=== PATIENT | female | born 1990 | race Caucasian/White ===

== ENCOUNTER 2020-10-31 00:21 | Emergency (ER) | payer MEDICAID ==
[~2020-10-31] VITALS: Ht 162.6 cm; Wt 90.7 kg
[2020-10-31 00:30] VITALS: BP_SYST 108
[2020-10-31] MEDS ORDERED: NACL 0.9% 1,000 ML IV ONE ×2 (02:30→02:45)
[2020-10-31] MEDS ORDERED: ONDANSETRON HCL 4 MG/2 ML VIAL IVP ONE (02:30)
[2020-10-31 02:31] LABS: BILIRUBIN,URINE NEGATIVE (NEGATIVE); BLOOD, URINE NEGATIVE (NEGATIVE); CLARITY/URINE CLEAR (CLEAR); COLOR,URINE YELLOW (YELLOW); GLUCOSE,URINE NEGATIVE (NEGATIVE); KETONES,URINE NEGATIVE (NEGATIVE); LEUKOCYTE ESTERASE ,URINE NEGATIVE (NEGATIVE); NITRITE, URINE NEGATIVE (NEGATIVE); PH,URINE 5.5 (5.0-8.0); PROTEIN URINE NEGATIVE (NEGATIVE); UROBILINOGEN,URINE 0.2 (0.2-1.0)
[2020-10-31] MEDS ORDERED: ONDA-8 TL (04:22)
[2020-10-31 04:30] VITALS: BP_SYST 108
== END 2020-10-31 04:30 | disposition home or self-care (01) ==
LOC: SED 00:21
DX: O21.0 Mild hyperemesis gravidarum (principal); Z3A.08 8 weeks gestation of pregnancy
CPT/HCPCS: 76801; 76817; 81003; 81025; 96361; 96374; 99284; J2405; J7030

== ENCOUNTER 2020-11-17 22:44 | Emergency (ER) | payer MEDICAID ==
[~2020-11-17] VITALS: Ht 162.6 cm; Wt 90.7 kg
[~2020-11-17 22:44] MED LIST: ONDA-8 TL
[2020-11-17 22:53] VITALS: BP_SYST 148
[2020-11-17] MEDS ORDERED: NACL 0.9% 1,000 ML IV ONE (23:15)
[2020-11-17 23:54] LABS: BILIRUBIN,URINE NEGATIVE (NEGATIVE); BLOOD, URINE NEGATIVE (NEGATIVE); CLARITY/URINE CLEAR (CLEAR); COLOR,URINE YELLOW (YELLOW); GLUCOSE,URINE NEGATIVE (NEGATIVE); KETONES,URINE NEGATIVE (NEGATIVE); LEUKOCYTE ESTERASE ,URINE TRACE (NEGATIVE); NITRITE, URINE NEGATIVE (NEGATIVE); PROTEIN URINE NEGATIVE (NEGATIVE); UROBILINOGEN,URINE 0.2 (0.2-1.0)
[2020-11-18 00:04] LABS: ACETONE, SERUM NEGATIVE (NEGATIVE)
[2020-11-18 00:06] LABS: ANION GAP 12 (5-15); CALCIUM 8.8 mg/dL (8.4-11.0); CHLORIDE 102 mmol/L (98-107); CREATININE 0.76 mg/dL (0.55-1.30); GLUCOSE 88 mg/dL (70-99); SODIUM SERUM 136 mmol/L (136-145); UREA NITROGEN, BLOOD 6 mg/dL (8-21)
[2020-11-18 00:16] LABS: BASOPHILS # (AUTO) 0.1 K/uL (0.0-0.2); BASOPHILS % (AUTO) 1.1 % (0.0-2.0); EOSINOPHILS # (AUTO) 0.1 K/uL (0.0-0.4); EOSINOPHILS % (AUTO) 0.7 % (0.0-4.0); HEMATOCRIT 40.6 % (36-48); HEMOGLOBIN 13.8 g/dL (12.0-16.0); LYMPHOCYTES # (AUTO) 2.9 K/uL (1.0-5.5); LYMPHOCYTES % (AUTO) 26.2 % (20.5-51.5); MEAN CORPUSCULAR HEMOGLOBIN 30 pg (27-31); MEAN CORPUSCULAR HGB CONC 34 % (32-36); MEAN CORPUSCULAR VOLUME 87 fL (79.0-98.0); MONOCYTES # (AUTO) 0.5 K/uL (0.0-1.0); MONOCYTES % (AUTO) 4.2 % (1.7-9.3); NEUTROPHILS # (AUTO) 7.6 K/uL (1.8-7.7); NEUTROPHILS % (AUTO) 67.8 % (40.0-70.0); PLATELET COUNT (AUTO) 267 K/uL (130-430); RED BLOOD CELL COUNT(AUTO) 4.67 MIL/uL (4.2-6.2); RED CELL DISTRIBUTION WIDTH 13.2 % (9.0-15.0); WHITE BLOOD COUNT (AUTO) 11.1 K/uL (4.8-10.8)
[2020-11-18] MEDS ORDERED: IBUP-1969 PO (00:25)
[2020-11-18 00:33] LABS: ALANINE AMINOTRANSFERASE 15 U/L (12-78); ALBUMIN 3.3 g/dL (3.4-4.8); ASPARTATE AMINOTRANSFERASE 18 U/L (10-37); TOTAL BILIRUBIN 0.2 mg/dL (0.0-1.0)
[2020-11-18 00:34] LABS: HCG,QUANTITATIVE 39446 mIU/ML (0-6)
[2020-11-18] MEDS ORDERED: DOXY1TAB3 PO (00:44)
[2020-11-18 00:49] LABS: BACTERIA,URINE FEW /HPF (None Seen); RBC,URINE 0-3 /HPF (0-3)
[2020-11-18 00:52] VITALS: BP_SYST 132
== END 2020-11-18 00:52 | disposition home or self-care (01) ==
LOC: SED 22:44
DX: O26.891 Other specified pregnancy related conditions, first trimester (principal); R10.84 Generalized abdominal pain; O21.8 Other vomiting complicating pregnancy; Z79.899 Other long term (current) drug therapy; Z3A.01 Less than 8 weeks gestation of pregnancy
CPT/HCPCS: 36415; 76801; 76817; 80053; 81000; 82009; 84702; 85025; 87086; 96360; 99284; J7030